=== PATIENT | male | born 1955 | race Two or more races ===

== ENCOUNTER 2016-09-02 18:27 | Emergency (ER) | payer OTHER ==
[~2016-09-02] VITALS: Ht 165.1 cm; Wt 78.9 kg
[2016-09-02 18:41] VITALS: BP 124/71
[2016-09-02 19:56] LABS: Basophils # (auto) 0.1 uL; Basophils % (auto) 0.7 % (0.0-2.0); Eosinophils # (auto) 0.4 uL; Eosinophils % (auto) 4.1 % (0.0-7.0); Hematocrit 43.3 % (41.0-53.0); Hemoglobin 14.6 g/dL (13.5-17.5); Lymphocytes # (auto) 1.7 uL; Lymphocytes % (auto) 20.3 % (10.0-50.0); Mean Corpuscular Hemoglobin 30.4 pg (28.0-32.0); Mean Corpuscular Hgb Conc. 33.8 g/dL (32.0-36.0); Mean Platelet Volume 7.9 fL (7.4-10.4); Monocytes # (auto) 0.6 uL; Monocytes % (auto) 6.6 % (0.0-12.0); Neutrophils # (auto) 5.9 uL; Neutrophils % (auto) 68.3 % (37.0-80.0); Platelet Count (auto) 345 10^3/uL (140-450); Red Cell Distribution Width 13.8 % (11.6-16.0); White Blood Cell 8.6 10^3/uL (4.4-10.8)
[2016-09-02 20:16] LABS: BUN/Creatinine Ratio 20.8; Bilirubin, Total 0.1 mg/dL (0.2-1.0); Calcium 8.4 mg/dL (8.5-10.1); Potassium 4.3 mmol/L (3.5-5.1); Total Protein 6.3 g/dL (6.4-8.2)
== END 2016-09-02 21:22 | disposition left against medical advice (07) ==
LOC: ER 18:32
DX: R10.9 Unspecified abdominal pain (principal); R11.2 Nausea with vomiting, unspecified; Z45.321 Encounter for adjustment and management of cochlear device
CPT/HCPCS: 36415; 80053; 85025

== ENCOUNTER 2016-09-03 08:58 | Emergency (ER) | payer OTHER ==
[2016-09-03 09:02] VITALS: BP_DIAS 83
[2016-09-03 09:36] LABS: Basophils # (auto) 0.1 uL; Basophils % (auto) 0.9 % (0.0-2.0); Eosinophils # (auto) 0.2 uL; Eosinophils % (auto) 2.5 % (0.0-7.0); Hematocrit 42.1 % (41.0-53.0); Hemoglobin 14.4 g/dL (13.5-17.5); Lymphocytes # (auto) 1.7 uL; Lymphocytes % (auto) 19.9 % (10.0-50.0); Mean Corpuscular Hemoglobin 30.6 pg (28.0-32.0); Mean Corpuscular Hgb Conc. 34.2 g/dL (32.0-36.0); Mean Corpuscular Volume 89.6 fL (80.0-100.0); Mean Platelet Volume 7.6 fL (7.4-10.4); Monocytes # (auto) 0.5 uL; Monocytes % (auto) 6.3 % (0.0-12.0); Neutrophils % (auto) 70.4 % (37.0-80.0); Platelet Count (auto) 343 10^3/uL (140-450); Red Cell Distribution Width 13.6 % (11.6-16.0); White Blood Cell 8.5 10^3/uL (4.4-10.8)
[2016-09-03 09:49] VITALS: BP_SYST 110
[2016-09-03 10:16] LABS: Albumin 2.9 g/dL (3.4-5.0); Alkaline Phosphatase 71 U/L (45-117); Anion Gap 9 (5-15); Aspartate Aminotransferase 11 U/L (15-37); BUN/Creatinine Ratio 22.2; Bilirubin, Total 0.3 mg/dL (0.2-1.0); Blood Urea Nitrogen 18 mg/dL (7-18); Calcium 8.4 mg/dL (8.5-10.1); Carbon Dioxide 28 mmol/L (21-32); Chloride 107 mmol/L (98-107); GFR African American 125 mL/min; GFR Non-African American 104 mL/min; Glucose 128 mg/dL (74-106); Potassium 4.2 mmol/L (3.5-5.1); Sodium 144 mmol/L (136-145)
[2016-09-03] MEDS ORDERED: PANTOPRAZOLE SODIUM 40 MG/10 ML VIAL IV ONE (12:00)
[2016-09-03] MEDS ORDERED: SODIUM CHLORIDE 0.9% 500 ML IV ONE (12:30)
== END 2016-09-03 12:38 | disposition home or self-care (01) ==
LOC: ER 09:00
DX: K29.70 Gastritis, unspecified, without bleeding (principal)
CPT/HCPCS: 36415; 74176; 80053; 83690; 84484; 85025; 93005; 96361; 96374; 99285; C9113

== ENCOUNTER 2018-07-24 09:44 | Emergency (ER) | payer MEDICARE, OTHER ==
[~2018-07-24] VITALS: Ht 165.1 cm; Wt 52.2 kg
[~2018-07-24 09:44] MED LIST: ONDA4TAB5 PO; PANT40TA2 PO; TRAM50TA2 PO
[2018-07-24 10:23] LABS: Mean Corpuscular Hemoglobin 26.4 pg (28.0-32.0); Monocytes # (auto) 0.3 uL; White Blood Cell 5.1 10^3/uL (4.4-10.8)
[2018-07-24 10:25] LABS: Basophils # (auto) 0 uL; Basophils % (auto) 0.9 % (0.0-2.0); Eosinophils # (auto) 0.1 uL; Eosinophils % (auto) 2.1 % (0.0-7.0); Hemoglobin 14.9 g/dL (13.5-17.5); Lymphocytes # (auto) 0.8 uL; Lymphocytes % (auto) 14.8 % (10.0-50.0); Mean Corpuscular Hgb Conc. 32.4 g/dL (32.0-36.0); Mean Corpuscular Volume 81.4 fL (80.0-100.0); Monocytes % (auto) 6.8 % (0.0-12.0); Neutrophils # (auto) 3.8 uL; Neutrophils % (auto) 75.4 % (37.0-80.0); Nucleated Red Blood Cells % 0.1 %; Platelet Count (auto) 112 10^3/uL (140-450); Red Blood Cells 5.65 10^6/uL (4.5-5.90)
[2018-07-24 10:27] LABS: Red Cell Distribution Width 32.9 % (11.8-14.3)
[2018-07-24 10:35] LABS: INR 1.42 (0.9-1.15); Partial Thromboplastin Time 29.4 sec (23.78-33.04); Prothrombin Time 14.9 sec (9.27-12.13)
[2018-07-24 10:38] LABS: Alanine Aminotransferase 59 U/L (16-61); Albumin 2.8 g/dL (3.4-5.0); Amylase 48 U/L (25-115); Anion Gap 4 (5-15); Aspartate Aminotransferase 51 U/L (15-37); BUN/Creatinine Ratio 11.9; Blood Urea Nitrogen 10 mg/dL (7-18); Calcium 8.5 mg/dL (8.5-10.1); Carbon Dioxide 30 mmol/L (21-32); Chloride 100 mmol/L (98-107); GFR African American > 60 mL/min; GFR Non-African American > 60 mL/min; Glucose 116 mg/dL (74-106); Lipase 139 U/L (73-393); Magnesium 2.1 mg/dL (1.6-2.6); Sodium 134 mmol/L (136-145)
[2018-07-24 10:43] LABS: Alkaline Phosphatase 199 U/L (45-117); Bilirubin, Total 0.4 mg/dL (0.2-1.0); Total Protein 6.6 g/dL (6.4-8.2)
[2018-07-24 11:38] VITALS: BP 115/73
[2018-07-24] MEDS ORDERED: HYDROcodone-ACET 10/325MG TAB PO ONE (11:45)
== END 2018-07-24 11:59 | disposition home or self-care (01) ==
LOC: ER 09:49
DX: K31.89 Other diseases of stomach and duodenum (principal); J45.909 Unspecified asthma, uncomplicated; Z79.899 Other long term (current) drug therapy
CPT/HCPCS: 36415; 74176; 80053; 82150; 83690; 83735; 84484; 85025; 85610; 85730; 93005; 94761

== ENCOUNTER 2018-08-18 14:34 | Inpatient (IN) | payer MEDICARE, OTHER | END 2018-08-25 20:55 | disposition hospice, home (50) | LOC: TELE-CENTR 08-19 16:48 → CENTRAL 08-23 07:31 → ER 14:34 → CENTRAL 08-23 20:04 → TELE 18:02 | PROC: 30233N1 Transfusion of Nonautologous Red Blood Cells into Peripheral Vein, Percutaneous Approach (ICD-10-PCS; principal; ~2018-08-18) | DX: I95.9 Hypotension, unspecified (principal); E43 Unspecified severe protein-calorie malnutrition; C16.9 Malignant neoplasm of stomach, unspecified; C78.7 Secondary malignant neoplasm of liver and intrahepatic bile duct; R18.8 Other ascites; K92.2 Gastrointestinal hemorrhage, unspecified; D61.818 Other pancytopenia; K29.70 Gastritis, unspecified, without bleeding; D69.6 Thrombocytopenia, unspecified; R79.89 Other specified abnormal findings of blood chemistry; Z85.028 Personal history of other malignant neoplasm of stomach; Z87.11 Personal history of peptic ulcer disease; K72.90 Hepatic failure, unspecified without coma; Z68.20 Body mass index [BMI] 20.0-20.9, adult; W19.XXXA Unspecified fall, initial encounter; Y93.9 Activity, unspecified; Y92.9 Unspecified place or not applicable; D64.9 Anemia, unspecified ==